=== PATIENT | male | born 1930 | race Caucasian/White ===

== ENCOUNTER 2017-07-18 11:30 | Emergency (ER) | payer OTHER, MEDICARE ==
[~2017-07-18] VITALS: Ht 152.4 cm; Wt 80.7 kg
[2017-07-18 11:30] VITALS: BP 135/74
[~2017-07-18 11:30] MED LIST: ASPI-495 PO; ATEN25TA PO; EZET10TA14 PO; LISI10TA5 PO; PRAV40TA PO
[2017-07-18] MEDS ORDERED: FURO-145 PO (12:00)
[2017-07-18] MEDS ORDERED: FINA5TAB11 PO (12:00)
[2017-07-18] MEDS ORDERED: CHOL100044 PO (12:00)
[2017-07-18] MEDS ORDERED: RIVA10TA PO (12:00)
[2017-07-18] MEDS ORDERED: POLY17PO4 PO (12:00)
[2017-07-18] MEDS ORDERED: CARV6.252 PO (12:00)
[2017-07-18] MEDS ORDERED: ALLO300T2 PO (12:00)
== END 2017-07-18 13:02 | disposition home or self-care (01) ==
LOC: ER 11:34
DX: S80.822A Blister (nonthermal), left lower leg, initial encounter (principal); I10 Essential (primary) hypertension; Z88.0 Allergy status to penicillin; Z79.82 Long term (current) use of aspirin; Z98.890 Other specified postprocedural states; X58.XXXA Exposure to other specified factors, initial encounter; Y93.89 Activity, other specified; Y92.89 Other specified places as the place of occurrence of the external cause; Y99.8 Other external cause status
CPT/HCPCS: 99283; A4606; Z7610